=== PATIENT | female | born 1995 | race Caucasian/White ===

== ENCOUNTER 2017-12-29 02:15 | Emergency (ER) | payer OTHER ==
[~2017-12-29] VITALS: Ht 175.3 cm; Wt 90.7 kg
[2017-12-29 06:58] VITALS: BP 107/69
[2017-12-29 09:41] LABS: BILIRUBIN,TOTAL 0.2 mg/dL (0.2-1.0); CREATININE 0.9 mg/dL (0.6-1.3); POTASSIUM 3.7 mmol/L (3.5-5.1); TOTAL PROTEIN, SERUM 8.2 g/dL (6.4-8.2)
[2017-12-29 09:42] LABS: THYROID STIMULATING HORMONE 2.346 mIU/mL (0.358-3.740)
[2017-12-29 09:51] LABS: *CLARITY,URINE HAZY (CLEAR); *COLOR,URINE YELLOW (YELLOW); PH,URINE 6.5 (5.0-8.0)
[2017-12-29 09:52] LABS: *BILIRUBIN,URIN NEGATIVE (NEGATIVE); *BLOOD, URINE NEGATIVE (NEGATIVE); *KETONES,URINE NEGATIVE (NEGATIVE); *PROTEIN,URINE TRACE (NEGATIVE); BACTERIA,URINE MODERATE /HPF (NONE SEEN); LEUKOCYTE ESTERASE ,URINE NEGATIVE (NEGATIVE); MUCUS,URINE MODERATE /LPF (0-FEW); NITRITE, URINE NEGATIVE (NEGATIVE); SQUAMOUS EPITHELIAL CELL,UR MANY /HPF (NONE SEEN); UGLUCOSE NEGATIVE (NEGATIVE)
[2017-12-29 09:53] LABS: *URINE HCG, QUAL NEGATIVE (NEGATIVE); WHITE BLOOD COUNT (AUTO) 6.2 K/UL (4.0-11.2)
[2017-12-29 09:54] LABS: HEMATOCRIT 36.1 % (37-47); HEMOGLOBIN 12.1 G/DL (12.0-16.0); MEAN CORPUSCULAR HEMOGLOBIN 27.9 UUG (27.0-31.0); MEAN CORPUSCULAR HGB CONC 34 g/dL (32.0-37.0); MEAN CORPUSCULAR VOLUME 83.3 FL (81.0-99.0); NEUTROPHILS % (AUTO) 51.8 % (38.5-71.5); PLATELET COUNT (AUTO) 294 K/UL (150-450); RED BLOOD CELL COUNT(AUTO) 4.33 MIL/UL (4.2-5.4)
[2017-12-29 09:55] LABS: BASOPHILS % (AUTO) 0.6 % (0.0-2.0); EOSINOPHILS # (AUTO) 0.3 K/uL (0.0-0.7); EOSINOPHILS % (AUTO) 4.7 % (0.0-7.0); LYMPHOCYTES # (AUTO) 2.1 K/UL (0.8-4.8); LYMPHOCYTES % (AUTO) 34.3 % (20.5-51.5); MONOCYTES # (AUTO) 0.5 K/UL (0.1-1.30); MONOCYTES % (AUTO) 8.6 % (0.0-11.0); NEUTROPHILS # (AUTO) 3.2 K/UL (1.8-8.9)
== END 2017-12-29 06:59 | disposition home or self-care (01) ==
LOC: ER 02:15
DX: R51 Headache (principal)
CPT/HCPCS: 36415; 70450; 84443; 84703; 85025; A4663